=== PATIENT | male | born 1960 | race Two or more races ===

== ENCOUNTER 2022-10-20 09:01 | Outpatient (CLI) | payer OTHER | END 2022-10-20 09:11 | disposition home or self-care (01) | LOC: MRI 09:01 | PROVIDERS: ATTEND General Practice | DX: R22.2 Localized swelling, mass and lump, trunk (principal); R22.9 Localized swelling, mass and lump, unspecified; Z12.5 Encounter for screening for malignant neoplasm of prostate; Z12.11 Encounter for screening for malignant neoplasm of colon; Z13.220 Encounter for screening for lipoid disorders; Z13.228 Encounter for screening for other metabolic disorders; Z13.1 Encounter for screening for diabetes mellitus; Z11.3 Encounter for screening for infections with a predominantly sexual mode of transmission; M54.9 Dorsalgia, unspecified; R73.01 Impaired fasting glucose | CPT/HCPCS: 73218 ==

== ENCOUNTER 2022-11-09 10:20 | Outpatient (CLI) | payer OTHER | END 2022-11-09 10:27 | disposition home or self-care (01) | LOC: SONOGRAMA 10:20 | PROVIDERS: ATTEND Pathology Anatomic Pathology | DX: L72.0 Epidermal cyst (principal); R22.2 Localized swelling, mass and lump, trunk ==